=== PATIENT | female | born 1965 | race Caucasian/White ===

== ENCOUNTER 2018-10-19 08:00 | Outpatient (CLI) | payer OTHER | END 2018-10-19 23:59 | disposition home or self-care (01) | LOC: LAB.R 08:00 | PROVIDERS: ATTEND Nurse Practitioner | DX: Z12.11 Encounter for screening for malignant neoplasm of colon (principal) | CPT/HCPCS: 82270 ==

== ENCOUNTER 2020-07-04 11:40 | Outpatient (CLI) | payer BC | END 2020-07-04 11:41 | disposition home or self-care (01) | LOC: COV 11:40 | PROVIDERS: ATTEND Family Medicine | DX: R05 Cough (principal); Z20.828 Contact with and (suspected) exposure to other viral communicable diseases; R53.83 Other fatigue; R09.81 Nasal congestion; M79.10 Myalgia, unspecified site; J02.9 Acute pharyngitis, unspecified ==

== ENCOUNTER 2020-11-17 19:24 | Outpatient (CLI) | payer BC | END 2020-11-17 19:25 | disposition critical access hospital (66) | LOC: EMS 19:24 | PROVIDERS: ATTEND Emergency Medicine | DX: R55 Syncope and collapse (principal); Z98.890 Other specified postprocedural states | CPT/HCPCS: A0425; A0427 ==

== ENCOUNTER 2020-11-17 19:58 | Emergency (ER) | payer BC ==
[2020-11-17] MEDS ORDERED: SODIUM CHLORIDE 0.9% 1,000 ML IV STA (20:03)
--- NOTE | 2020-11-17 20:06 | ED Physician Documentation ---
PD HPI SYNCOPE - Stated complaint Stated Complaint: SYNCOPE - History obtained from History obtained from: Patient, EMS - Additional information Additional information: She had an abdominal plasty by Dr. Lul Rivera, a plastic surgeon in [place] done at a outpatient surgical center in [place] today. She was released about 2 PM. She is doing okay with not too bad of pain afterwards, she is intolerant of narcotics and has not taken any. She had 2 syncopal episodes while sitting on a counter. She does not have a recollection of this. She feels pretty much back to normal now. Review of Systems Ten Systems: 10 systems reviewed and negative Constitutional: reports: Fatigue Cardiac: denies: Chest pain / pressure, Palpitations Respiratory: denies: Dyspnea, Cough PD PAST MEDICAL HISTORY - Present Medications Home Medications: Ambulatory Orders Medication Instructions Recorded Confirmed No Known Home Medications 11/17/20 11/17/20 - Allergies Allergies/Adverse Reactions: Allergies Allergy/AdvReac Type Severity Reaction Status Date / Time codeine AdvReac Mild Nausea Verified 11/17/20 20:24 PD ED PE NORMAL - Vitals Vital signs reviewed: Yes - General General: Alert and oriented X 3, No acute distress - HEENT HEENT: PERRL, EOMI - Neck Neck: Supple, no meningeal sign, No bony TTP - Cardiac Cardiac: RRR, No murmur - Respiratory Respiratory: No respiratory distress, Clear bilaterally - Abdomen Abdomen: Normal bowel sounds, Soft, Other (There is a long incision mcc between the umbilicus and the pelvis. There is some blood from it, but not a lot.) - Back Back: No CVA TTP, No spinal TTP - Derm Derm: Normal color, Warm and dry - Extremities Extremities: No edema, No calf tenderness / cord - Neuro Neuro: Alert and oriented X 3, Normal speech Results - Vitals Vitals: Vital Signs - 24 hr 11/17/20 11/17/20 20:11 21:05 Temperature 36.9 C Heart Rate 84 Respiratory 12 Rate Blood Pressure 148/126 H Blood Pressure 99/66 [Sitting] Blood Pressure 100/67 [Supine] O2 Saturation 98 Oxygen O2 Source Room air - Labs Labs: Laboratory Tests 11/17/20 11/17/20 11/17/20 20:17 20:17 20:17 WBC 20.0 H RBC 3.81 L Hgb 12.2 Hct 37.4 MCV 98.2 MCH 32.0 H MCHC 32.6 RDW 13.2 Plt Count 247 MPV 10.4 Neut # (Auto) 17.9 H Lymph # (Auto) 0.9 L Rincon # (Auto) 0.8 Eos # (Auto) 0.2 Baso # (Auto) 0.1 Absolute Nucleated RBC 0.00 Nucleated RBC % 0.0 PT 13.8 H INR 1.3 H Sodium Potassium Chloride Carbon Dioxide Anion Gap BUN Creatinine Estimated GFR (MDRD) Glucose Calcium Blood Type A POSITIVE Antibody Screen NEGATIVE 11/17/20 20:17 WBC RBC Hgb Hct MCV MCH MCHC RDW Plt Count MPV Neut # (Auto) Lymph # (Auto) Rincon # (Auto) Eos # (Auto) Baso # (Auto) Absolute Nucleated RBC Nucleated RBC % PT INR Sodium 141 Potassium 3.7 Chloride 103 Carbon Dioxide 24 Anion Gap 14.0 H BUN 15 Creatinine 0.6 Estimated GFR (MDRD) 104 Glucose 172 H Calcium 9.1 Blood Type Antibody Screen PD MEDICAL DECISION MAKING - ED course ED course: 54-year-old woman presents after 2 syncopal episodes at home after having abdominoplasty earlier today. She was given a liter of crystalloid and labs were checked. Presume her white count is demargination from the surgery. Her initial H&H was good. After the first liter of saline we attempted orthostatics and she immediately syncopized going to an upright position. A second liter of crystalloid, this time LR was given. Able to tolerate the orthostatics with minimal change in vital signs after the second liter of LR though. Departure - Departure Disposition: 01 Home, Self Care Clinical Impression: Dehydration Syncope Qualifiers: Syncope type: unspecified Qualified Code(s): R55 - Syncope and collapse Condition: Stable Record reviewed to determine appropriate education?: Yes Instructions: ED Dehydration Comments: Followup with your surgeon in 2 days as scheduled. Return for new or worsening symptoms.
[2020-11-17 20:38] LABS: CALCIUM 9.1 mg/dL (8.5-10.3); CREATININE 0.6 mg/dL (0.4-1.0); POTASSIUM 3.7 mmol/L (3.5-5.0)
[2020-11-17 20:39] LABS: INR 1.3 (0.8-1.2); PT - PROTHROMBIN TIME 13.8 secs (9.9-12.6)
[2020-11-17 20:45] LABS: BASOPHILS # (AUTO) 0.1 10^3/uL (0.0-0.1); BASOPHILS % (AUTO) 0.4 %; EOSINOPHILS # (AUTO) 0.2 10^3/uL (0.0-0.7); EOSINOPHILS % (AUTO) 1.1 %; HCT - HEMATOCRIT 37.4 % (37.0-47.0); HGB - HEMOGLOBIN 12.2 g/dL (12.0-16.0); LYMPHOCYTES # (AUTO) 0.9 10^3/uL (1.5-3.5); LYMPHOCYTES % (AUTO) 4.6 %; MEAN CORPUSCULAR HGB CONC 32.6 g/dL (32.0-36.0); MEAN CORPUSCULAR VOLUME 98.2 fL (81.0-99.0); MEAN PLATELET VOLUME 10.4 fL (7.9-10.8); MONOCYTES # (AUTO) 0.8 10^3/uL (0.0-1.0); MONOCYTES % (AUTO) 3.8 %; NEUTROPHILS # (AUTO) 17.9 10^3/uL (1.5-6.6); NEUTROPHILS % (AUTO) 89.5 %; PLT - PLATELET COUNT 247 10^3/uL (130-450); RED BLOOD COUNT 3.81 10^6/uL (4.20-5.40); RED CELL DISTRIBUTION WIDTH 13.2 % (12.0-15.0)
[2020-11-17] MEDS ORDERED: LACTATED RINGERS 1,000 ML IV STA (21:08)
[2020-11-17 22:42] VITALS: BP 125/77
== END 2020-11-17 22:43 | disposition home or self-care (01) ==
LOC: EDUNIT# → ED 19:58
DX: E86.0 Dehydration (principal); R55 Syncope and collapse; R53.83 Other fatigue; Z98.890 Other specified postprocedural states
CPT/HCPCS: 80048; 85025; 85610; 86850; 86900; 86901; 93005; 96360; 96361; 99283; 99284; J7120